=== PATIENT | female | born 1935 | race Caucasian/White ===

== ENCOUNTER 2020-04-13 10:16 | Inpatient (IN) | payer MEDICARE, MEDICAID, SELFPAY ==
[2020-04-13] VITALS (25 sets, daily range): BP systolic 95–148; BP diastolic 31–91; PULSE 52–63; RESP 17–25; TEMP 36.4–36.8; O2SAT 80–100; BMI 23.7
--- NOTE | ~2020-04-13 | CT_ITS ---
EXAMINATION: CT brain wo con DATE: 04/13/2020 19:50 INDICATION: Altered mental status TECHNIQUE: Computed tomography (CT) of the head was performed without intravenous contrast. Sagittal and coronal reconstructions were performed. The mA was adjusted according to patient size. Iterative reconstruction technique was employed. The dose-length product was 1059.33 mGy-cm. COMPARISON: None FINDINGS: Small old infarct at the left lentiform nucleus. No acute intracranial hemorrhage, acute infarction o r abnormal extra axial fluid collection. There is moderate scattered white matter hypoattenuation con sistent with chronic small vessel ischemic disease. Symmetric prominence of the sulci and ventricles consistent with moderate age-appropriate diffuse cerebral volume loss. No mass/mass effect. Intracran ial calcified cerebral atherosclerosis is noted. The orbits, paranasal sinuses and mastoid air cells are normal. IMPRESSION: 1. No acute intracranial process. 2. Small old infarct at the left lentiform nucleus. 3. Age-related changes including moderate diffuse volume loss and moderate scattered white matter hyp oattenuation consistent with chronic small vessel ischemic disease. Reviewed, dictated and finalized at location . DESK REPRESENTATIVE IMPRESSION: 1. No acute intracranial process. 2. Small old infarct at the left lentiform nucleus. 3. Age-related changes including moderate diffuse volume loss and moderate scat tered white matter hypoattenuation consistent with chronic small vessel ischemi c disease.
--- NOTE | 2020-04-13 10:21 | ECG_ITS ---
Measurements Intervals [place] Rate: 62 P: 75 AK: 236 QRS: -34 QRSD: 110 T: 53 QT: 460 QTc: 468 Interpretive Statements SINUS RHYTHM WITH FIRST DEGREE AV BLOCK LEFT AXIS DEVIATION INTRAVENTRICULAR CONDUCTION DELAY DELAYED PRECORDIAL R/S TRANSITION BORDERLINE ST-T WAVE ABNORMALITY- HIGH LATERAL LEADS BASELINE ARTIFACT- I, II, III, AVR, AVL, AVF, V6 ABNORMAL ECG Electronically Signed On 04-13-2020 10:33:17 [employer] MACHINE by Mango Adamson D.O.
--- NOTE | 2020-04-13 10:30 | PC.NURSE ---
Spoke with pt's daughter Aisha Mortensen #[phone] and updated on pt condition.
[2020-04-13 11:12] LABS: Basophils Absolute Auto 0.1 K/mm3 (0.0-0.1); Basophils Percent Auto 0.9 % (0.2-1.2); Eosinophils Absolute Auto 0.3 K/mm3 (0-0.3); Eosinophils Percent Auto 3.5 % (0-4.4); Hemoglobin 13.5 g/dL (12.0-15.0); Immature Granulocyte Absolute 0.03 K/mm3 (0.00-0.031); Immature Granulocyte Percent A 0.4 % (0-0.5); Lymphocytes Absolute Auto 1.72 K/mm3 (0.9-3.2); Mean Corpuscular HGB Conc 31.4 g/dl (32-36); Mean Corpuscular Hemoglobin 29.2 pg (26-34); Mean Corpuscular Volume 92.9 fl (80-100); Mean Platelet Volume 10.4 fl (7.4-10.4); Monocytes Absolute Auto 0.5 K/mm3 (0.1-0.6); Monocytes Percent Auto 6.2 % (2.6-8.5); Neutrophils Absolute Auto 5.6 K/mm3 (1.3-6.7); Platelet Count Result 179 k/mm3 (150-375); Red Blood Count 4.63 M/mm3 (4.2-5.4); Red Cell Distribution Width 14.4 % (11.5-14.5); White Blood Count 8.2 K/mm3 (4.5-10.0)
[2020-04-13 11:23] LABS: Add Urine Microscopic? YES; Appearance Urine Turbid (Clear); Bacteria Urine 2+ /hpf; Bilirubin Urine Negative (Negative); Blood Urine 2+ (Negative); Color Urine Yellow (Yellow); Glucose Urine UA Negative (Negative); Ketones Urine Negative (Negative); Leukocyte Esterase Ur 2+ LEU/UL (Negative); Mucus Urine Heavy /lpf; Nitrate Urine Negative (Negative); Protein Urine 3+ mg/dL (Negative); Specific Grav Ur 1.013 (1.001-1.035); Squamous Epithelial Cell Urine Many /hpf (Few); Urobilinogen Urine Negative mg/dL (<2.0); WBC Clumps Urine Present /HPF; WBC Urine >75 /hpf
[2020-04-13 11:24] LABS: Alanine Aminotransferase 15 U/L (4-35); Albumin Level 3.5 g/dL (3.5-5.1); Alkaline Phosphatase 80 U/L (38-126); Anion Gap 7 mmol/L (8-16); Aspartate Amino Transferase 24 U/L (14-36); Bilirubin,Total 0.6 mg/dL (0.2-1.3); Blood Urea Nitrogen 22 mg/dL (7-17); Calcium 8.8 mg/dL (8.4-10.2); Carbon Dioxide 32 mmol/L (22-30); Chloride 104 mmol/L (98-107); Estimated Glomerular Filt Rate > 60; Glucose 89 mg/dL (65-105); Potassium 4.1 mmol/L (3.4-5.0); Sodium 143 mmol/L (137-145)
--- NOTE | 2020-04-13 11:44 | ED.AMS ---
HPI - Altered Mental Status General Chief Complaint: Altered Mental Status Stated Complaint: AMS Time Seen by Provider: 04/13/20 10:36 History of Present Illness HPI narrative: Patient is an 84-year-old female who presents ER with altered mental status. At baseline patient is oriented x3 and today she is only oriented x1 thus she was sent in for further evaluation. Patient reports she hurts all over. Patient has no additional complaints. She seems somnolent. She has purulent urine. Covid negative 04/07/2020. Related Data Home Medications Medication Instructions Recorded Confirmed Ditropan XL 10 mg PO DAILY 04/13/20 04/13/20 acetaminophen 1,000 mg PO TID PRN 04/13/20 04/13/20 alprazolam 0.25 mg PO HS 04/13/20 04/13/20 atorvastatin 20 mg PO HS 04/13/20 04/13/20 calcium carbonate [Tums] 400 mg PO Q4H PRN 04/13/20 04/13/20 citalopram 10 mg PO DAILY 04/13/20 04/13/20 clopidogrel 75 mg PO DAILY 04/13/20 04/13/20 cyanocobalamin (vitamin B-12) 1,000 mcg MONTHLY 04/13/20 04/13/20 duloxetine 20 mg PO DAILY 04/13/20 04/13/20 famotidine 20 mg PO BID 04/13/20 04/13/20 hydrocodone-acetaminophen 1 tablet PO Q6H PRN 04/13/20 04/13/20 levothyroxine 125 mcg PO DAILY 04/13/20 04/13/20 loratadine [Claritin] 10 mg PO HS 04/13/20 04/13/20 multivitamin with minerals [Daily 1 tablet PO DAILY 04/13/20 04/13/20 Multivitamin-Minerals] nebivolol [Bystolic] 10 mg PO DAILY 04/13/20 04/13/20 pantoprazole 20 mg PO DAILY 04/13/20 04/13/20 polyethylene glycol 3350 [Miralax] 17 g PO HS 04/13/20 04/13/20 potassium chloride 10 meq PO BID 04/13/20 04/13/20 Allergies Allergy/AdvReac Type Severity Reaction Status Date / Time No Known Allergies Allergy Verified 04/13/20 14:05 Review of Systems Review of Systems: ROS unobtainable: Yes unobtainable due to mental status PMFSH Past Medical History Medical History (Updated 04/13/20 @ 16:55 by Sukhdev Zuniga MD) Anxiety CVA (cerebral vascular accident) GERD (gastroesophageal reflux disease) HTN (hypertension), benign Hyperlipidemia Hypothyroidism Major depressive disorder Osteoarthritis Surgical History Surgical History (Updated 04/13/20 @ 14:42 by Bridgette Ling NP) History of bilateral knee replacement Surgical history unknown Family History Family History (Updated 04/13/20 @ 14:44 by Bridgette Ling NP) Unknown Unknown family medical history Social History Social History (Updated 04/13/20 @ 14:46 by Bridgette Ling NP) Social History: the patient comes from [place] is a [facility]. The patient is . She is retired she is a DNR. Her daughter Aisha is listed as a durable power employment law attorney for healthcare. Patient tells me she has 2 children. Patient told me that she never smokes or uses alcohol or any illicit drugs. Smoking status: Never smoker Alcohol intake: never Substance use: never Living arrangements: detention Additional living arrangements comments: Lives at [facility] Occupation/Education: retired Gender identity (if verbalized by the patient): Female Sexual Orientation (if Verbalized by the Patient): Straight or Heterosexual Spiritual care concerns: No Exam Narrative: Exam Narrative: GENERAL: Chronically ill-appearing, well-nourished, and in no acute distress. HEAD: Normocephalic, atraumatic. EYES: PERRL and EOMI. ENT: Mucous membranes moist. CHEST: Clear to auscultation. No respiratory distress. HEART: Bradycardic and regular. Normal peripheral pulses. ABDOMEN: Soft, nontender, nondistended. EXTREMITIES: Normal range of motion. No edema. SKIN: Warm, dry, no rash. NEURO: Alert and oriented x1. Course Course Emergency Course: Admit to hospitalist service for UTI. Vital Signs Vital signs: Vital Signs Temperature 98 F 04/13/20 10:16 Pulse Rate 54 L 04/13/20 10:16 Respiratory Rate 23 H 04/13/20 10:16 Blood Pressure 140/91 H 04/13/20 10:16 Pulse Oximetry 90 04/13/20 10:16 Temperature 97.6 F
--- NOTE | 2020-04-13 12:20 | PC.NURSE ---
received report from Rd. patient sent here from [place] with lethargy. see notes. no change in overall condition. waiting for further orders from .
--- NOTE | 2020-04-13 12:20 | PC.NURSE ---
unable to get lactic drawn yet. difficult stick. oil burner technician will try again. IV antibiotic started. patient on environmental monitoring technician.
--- NOTE | 2020-04-13 12:26 | PC.NURSE ---
patient is difficult IV stick. morgue technician at bedside now.
[2020-04-13 13:10] LABS: Lactic Acid Reflex 2.5 mmol/L (0.7-2.1)
--- NOTE | 2020-04-13 13:15 | PC.NURSE ---
no change. continue to monitor. SBAR completed and faxed but RN unavailable for report.
--- NOTE | 2020-04-13 13:30 | PC.NURSE ---
report given to Roxanne BEAR. patient will transfer via technical services manager and stretcher.
--- NOTE | 2020-04-13 13:40 | ADMGEN ---
This patient, Angela Tan, was admitted to Medical Room 258-01. Patient/family oriented to hospital policies and general routines including ID bracelet, bed and alarms, visiting hours, pain management, procedures, bathroom and other care routines, personal items, smoking policy, room service/diet, and visiting hours. Information on how to activate the Rapid Response Team has been discussed. Patient/Family are encouraged to report perceived risks to care and to ask questions if they do not understand what they are told or what they should do.
--- NOTE | 2020-04-13 14:30 | PM.IMHP ---
H&P: HPI History of Present Illness Date/Time: 04/13/20 14:30 Chief complaint: uti,metabolic encephalopathy Narrative: Angela Tan is a 84 year old female Who is from [facility]. the patient came in with altered mental status. She is typically alert orientated x3. She was only orientated x1 and was sent to the emergency room for further evaluation. The patient was telling the ER physician that she was hurting all over. The patient initially was not talking to me and then I came back to re-evaluate her she was answering more questions. The patient had a COVID negative test on 04/07/2020. the patient is afebrile. She had purulence cloudy urine noted in the emergency room. She is positive for urinary tract infection. Patient has no records of having any resistant bacteria. She was started on ceftriaxone. urine cultures are pending. Blood cultures are pending. The patient became more talkative towards the end of the interview. The patient is being admitted into observation status on the date of service 04/13/2020. Review of Systems Review of Systems: All systems reviewed & are unremarkable except as noted in HPI and below Constitutional: Constitutional: Reports as per HPI and Reports no additional constitutional complaints Eyes: Eyes: Reports as per HPI and Reports no additional eye complaints ENT: Reports system reviewed and no additional complaints, except as documented and Reports Normal hearing present Cardiovascular: Cardiovascular: Reports no additional cardiovascular complaints Respiratory: Respiratory: Reports no additional respiratory complaints and Reports no additional respiratory complaints Gastrointestinal: Gastrointestinal: Reports as per HPI and Reports no additional gastrointestinal complaints Musculoskeletal: Musculoskeletal: Reports no additional musculoskeletal complaints Integumentary/Breasts: Skin/Breast: Reports system reviewed and no additional complaints, except as docu and Reports as per HPI Neurologic: Reports system reviewed and no additional complaints, except as documented, Reports as per HPI and Reports Normal hearing present Psychiatric: Psychiatric: Reports no additional psychiatric complaints and Reports as per HPI Endocrine: Endocrine: Reports no additional endocrine complaints Hematologic/Lymphatic: Hematologic/Lymphatic: Reports no additional hematologic/lymphatic complaints Allergic/Immunologic: Allergic/Immunologic: Reports no additional allergic/immunologic complaints [facility] Past Medical History Medical History (Updated 04/13/20 @ 14:42 by Bridgette Ling NP) Anxiety CVA (cerebral vascular accident) GERD (gastroesophageal reflux disease) HTN (hypertension), benign Hyperlipidemia Hypothyroidism Major depressive disorder Osteoarthritis Surgical History Surgical History (Updated 04/13/20 @ 14:42 by Bridgette Ling NP) History of bilateral knee replacement Surgical history unknown Family History Family History (Updated 04/13/20 @ 14:44 by Bridgette Ling NP) Unknown Unknown family medical history Social History Social History (Updated 04/13/20 @ 14:46 by Bridgette Ling NP) Social History: the patient comes from [place] [facility]. The patient is . She is retired she is a DNR. Her daughter Aisha is listed as a durable power attorney at law for healthcare. Patient tells me she has 2 children. Patient told me that she never smokes or uses alcohol or any illicit drugs. Smoking status: Never smoker Alcohol intake: never Substance use: never Living arrangements: [facility] Additional living arrangements comments: Lives at [facility] Occupation/Education: retired Gender identity (if verbalized by the patient): Female Sexual Orientation (if Verbalized by the Patient): Straight or Heterosexual Spiritual care concerns: No Meds Home Medications and Allergies Home Medications Medication Instructions Recor
[2020-04-13 15:52] LABS: Reflex Lactic Acid Yes or No Add Lactic
[2020-04-13 16:40] LABS: Lactic Acid 2.4 mmol/L (0.7-2.1)
[2020-04-13] MEDS: POTASSIUM CHLORIDE 10 MEQ TABLET.ER PO (17:30)
[2020-04-13] MEDS: FAMOTIDINE 20 MG TABLET PO (17:30)
[2020-04-13] MEDS: polyethylene glycoL 3350 17 GM POWD.PACK PO (20:11)
[2020-04-13] MEDS: LORATADINE 10 MG TABLET PO (20:11)
[2020-04-14 04:00] VITALS: BP 152/68; PULSE 97; RESP 22; TEMP 37.3; O2SAT 99
[2020-04-14 05:59] LABS: Basophils Absolute Auto 0.1 K/mm3 (0.0-0.1); Basophils Percent Auto 0.6 % (0.2-1.2); Eosinophils Absolute Auto 0.1 K/mm3 (0-0.3); Eosinophils Percent Auto 1.1 % (0-4.4); Hematocrit 43.2 % (37.0-47.0); Hemoglobin 13.6 g/dL (12.0-15.0); Immature Granulocyte Absolute 0.03 K/mm3 (0.00-0.031); Immature Granulocyte Percent A 0.4 % (0-0.5); Lymphocytes Percent Auto 13.2 % (18.3-44.2); Mean Corpuscular HGB Conc 31.5 g/dl (32-36); Mean Corpuscular Hemoglobin 28.5 pg (26-34); Mean Corpuscular Volume 90.6 fl (80-100); Mean Platelet Volume 10.7 fl (7.4-10.4); Monocytes Absolute Auto 0.5 K/mm3 (0.1-0.6); Monocytes Percent Auto 5.6 % (2.6-8.5); Neutrophils Absolute Auto 6.6 K/mm3 (1.3-6.7); Neutrophils Percent Auto 79.1 % (45.5-73.1); Platelet Count Result 208 k/mm3 (150-375); Red Blood Count 4.77 M/mm3 (4.2-5.4); White Blood Count 8.4 K/mm3 (4.5-10.0)
[2020-04-14] MEDS: LEVOTHYROXINE SODIUM 125 MCG TABLET PO (06:06)
[2020-04-14 06:23] LABS: Alanine Aminotransferase 17 U/L (4-35); Albumin Level 3.6 g/dL (3.5-5.1); Alkaline Phosphatase 93 U/L (38-126); Anion Gap 7 mmol/L (8-16); Aspartate Amino Transferase 28 U/L (14-36); Bilirubin,Total 0.6 mg/dL (0.2-1.3); Blood Urea Nitrogen 21 mg/dL (7-17); Carbon Dioxide 31 mmol/L (22-30); Chloride 105 mmol/L (98-107); Estimated CRCL calculation 63 ml/min; Estimated Glomerular Filt Rate > 60; Glucose 110 mg/dL (65-105); Magnesium 2.2 mg/dL (1.6-2.3); Potassium 3.9 mmol/L (3.4-5.0); Sodium 143 mmol/L (137-145)
[2020-04-14 08:20] VITALS: PULSE 92; PULSE 96; RESP 16; O2SAT 99
[2020-04-14] MEDS: CITALOPRAM HYDROBROMIDE 10 MG TABLET PO (08:20)
[2020-04-14] MEDS: POTASSIUM CHLORIDE 10 MEQ TABLET.ER PO ×2 (08:20→17:45)
[2020-04-14] MEDS: CLOPIDOGREL BISULFATE 75 MG TABLET PO (08:20)
[2020-04-14] MEDS: NEBIVOLOL HCL 5 MG TABLET 10 MG PO (08:20)
[2020-04-14] MEDS: DULoxetine HCL 20 MG CAPSULE.DR PO (08:20)
[2020-04-14] MEDS: THERAPEUTIC MULTIVITAMINS/MINERALS TAB (*BKC) 1 TABLET PO (08:20)
[2020-04-14] MEDS: FAMOTIDINE 20 MG TABLET PO ×2 (08:20→17:46)
[2020-04-14] MEDS: PANTOPRAZOLE SOD SESQUIHYDRATE 20 MG TAB PO (08:22)
--- NOTE | 2020-04-14 12:36 | PCOTNOTE ---
Attempted OT evaluation. Patient eating lunch. Will continue to attempt.
[2020-04-14 14:00] VITALS: BP 115/46; PULSE 75; RESP 18; TEMP 36.9; O2SAT 95
--- NOTE | 2020-04-14 14:12 | PM.IMPN ---
Progress Note: A&P Assessment and Plan (1) UTI (urinary tract infection): Code(s): N39.0 - Urinary tract infection, site not specified Status: Acute Assessment and Plan: The patient was started on ceftriaxone. Urine cultures are pending and blood cultures are pending. Patient initially was confused. However after her 1st dose of antibiotic she became alert And talkative. 04/14/20 14:12 Patient 84-year-old female a resident of care home patient was sent to emergency department for further evaluation as patient was more confused and not to her baseline, emergency department patient is found to have UTI was started on Rocephin this morning patient is quite reluctant to talk to me and to provide any review of symptoms, most likely her symptoms may be caused by irritation of her UTI, will continue to treat the patient will follow-up on urine culture and sensitivity, PT OT evaluate the patient and monitor further recommendation to follow (2) HTN (hypertension), benign: Code(s): I10 - Essential (primary) hypertension Status: Chronic Assessment and Plan: continue with Bystolic. (3) Anxiety: Code(s): F41.9 - Anxiety disorder, unspecified Status: Chronic Assessment and Plan: Were going to hold her alprazolam at this time because she has been so lethargic. (4) Major depressive disorder: Code(s): F32.9 - Major depressive disorder, single episode, unspecified Status: Chronic Assessment and Plan: Continue with duloxetine. Continue with Celexa. Home medications have not been verified but this is what is showing up on her prescription monitoring program. (5) Hyperlipidemia: Code(s): E78.5 - Hyperlipidemia, unspecified Status: Chronic Assessment and Plan: Hold her statin for now. (6) Hypothyroidism: Code(s): E03.9 - Hypothyroidism, unspecified Status: Chronic Assessment and Plan: Check thyroid level and continue levothyroxine. Subjective Date/time seen: 04/14/20 14:12 Patient 84-year-old female a resident of care home patient was sent to emergency department for further evaluation as patient was more confused and not to her baseline, emergency department patient is found to have UTI was started on Rocephin this morning patient is quite reluctant to talk to me and to provide any review of symptoms, most likely her symptoms may be caused by irritation of her UTI, will continue to treat the patient will follow-up on urine culture and sensitivity, PT OT evaluate the patient and monitor further recommendation to follow Review of Systems Review of Systems: All systems reviewed & are unremarkable except as noted in HPI and below Constitutional: Constitutional: Reports as per HPI and Reports no additional constitutional complaints Exam Narrative: Exam Narrative: Elderly frail Patient is comfortable, NAD HEENT: eyes are clear and none icteric LUNGS:CTA HEART: RR S1S2 ABD: BS+, Soft and nontender Lower extremities: no edema SKIN: nonjaundiced Neuro: grossly intact. Objective Data Vital Signs Vital Signs: Vital Signs - 24 hr 04/13/20 14:30 04/13/20 20:00 04/14/20 04:00 Temperature 97.6 F 98.2 F 99.1 F Pulse Rate 60 52 L 97 Respiratory Rate 18 22 H 22 H Blood Pressure 148/56 H 115/42 L 152/68 H Pulse Oximetry 100 95 99 04/14/20 08:20 Temperature Pulse Rate 96 Respiratory Rate 16 Blood Pressure Pulse Oximetry 99 Intake/Output Intake/Output: Intake & Output 04/11/20 04/12/20 04/13/20 04/14/20 23:59 23:59 23:59 23:59 Intake Total 125 50 Output Total 100 Balance 25 50 Meds/Results Medications: Active Medications Generic Name Dose Route Start Last Admin Trade Name Freq PRN Reason Stop Dose Admin Acetaminophen 650 mg 04/13/20 12:10 Acetaminophen 325 Mg Tablet PO Q4H PRN Mild Pain (1-3) or Fever Hydrocodone Bitart/Acetaminophen 1 tab 04/13/20 12:10
[2020-04-14 20:00] VITALS: O2SAT 94
[2020-04-14] MEDS: polyethylene glycoL 3350 17 GM POWD.PACK PO (20:15)
[2020-04-14] MEDS: LORATADINE 10 MG TABLET PO (20:15)
[2020-04-14 22:00] VITALS: BP 125/54; PULSE 68; RESP 20; TEMP 36.3; O2SAT 94
[2020-04-15] MEDS: LEVOTHYROXINE SODIUM 125 MCG TABLET PO (05:45)
[2020-04-15 05:58] LABS: Hematocrit 40.3 % (37.0-47.0); Hemoglobin 12.9 g/dL (12.0-15.0); Mean Corpuscular Hemoglobin 28.6 pg (26-34); Mean Corpuscular Volume 89.4 fl (80-100); Mean Platelet Volume 10.4 fl (7.4-10.4); Platelet Count Result 193 k/mm3 (150-375); Red Blood Count 4.51 M/mm3 (4.2-5.4); Red Cell Distribution Width 14.2 % (11.5-14.5); White Blood Count 7.9 K/mm3 (4.5-10.0)
[2020-04-15 06:00] VITALS: BP 153/65; PULSE 67; RESP 20; TEMP 36.4; O2SAT 93
[2020-04-15 06:14] LABS: Anion Gap 3 mmol/L (8-16); Blood Urea Nitrogen 19 mg/dL (7-17); Calcium 8.8 mg/dL (8.4-10.2); Carbon Dioxide 33 mmol/L (22-30); Chloride 103 mmol/L (98-107); Estimated CRCL calculation 63 ml/min; Estimated Glomerular Filt Rate > 60; Glucose 95 mg/dL (65-105); Potassium 4.2 mmol/L (3.4-5.0); Sodium 139 mmol/L (137-145)
[2020-04-15] MEDS: DULoxetine HCL 20 MG CAPSULE.DR PO (09:16)
[2020-04-15] MEDS: EUCERIN CREAM 120 GM JAR 1 APPLIC TOPICAL (09:16)
[2020-04-15 09:17] VITALS: PULSE 68
[2020-04-15] MEDS: PANTOPRAZOLE SOD SESQUIHYDRATE 20 MG TAB PO (09:17)
[2020-04-15] MEDS: CITALOPRAM HYDROBROMIDE 10 MG TABLET PO (09:17)
[2020-04-15] MEDS: POTASSIUM CHLORIDE 10 MEQ TABLET.ER PO ×2 (09:17→16:48)
[2020-04-15] MEDS: NEBIVOLOL HCL 5 MG TABLET 10 MG PO (09:17)
[2020-04-15 09:18] VITALS: RESP 20; O2SAT 94
[2020-04-15] MEDS: THERAPEUTIC MULTIVITAMINS/MINERALS TAB (*BKC) 1 TABLET PO (09:18)
[2020-04-15] MEDS: FAMOTIDINE 20 MG TABLET PO ×2 (09:18→16:48)
[2020-04-15] MEDS: CLOPIDOGREL BISULFATE 75 MG TABLET PO (09:18)
[2020-04-15] MEDS: CYANOCOBALAMIN INJ 1,000 MCG/ML VIAL 1000 MCG IM (09:18)
--- NOTE | 2020-04-15 10:20 | PM.IMPN ---
Progress Note: A&P Assessment and Plan (1) UTI (urinary tract infection): Code(s): N39.0 - Urinary tract infection, site not specified Status: Acute Assessment and Plan: The patient was started on ceftriaxone. Urine cultures are pending and blood cultures are pending. Patient initially was confused. However after her 1st dose of antibiotic she became alert And talkative. 04/15/20 10:20 Patient 84-year-old female a [facility] patient was sent to emergency department for further evaluation as patient was more confused and not to her baseline, emergency department patient is found to have UTI was started on Rocephin on 04/14 patient was quite reluctant to talk to me and to provide any review of symptoms, suspected her symptoms may be caused by irritation of her UTI, today patient is much more pleasant and cooperative is feeling much better, denies any abdominal pain nausea or vomiting fever or chill, patient also work with occupational therapy and patient is on her baseline, will wait for physical therapist to evaluate the patient, will wait to follow-up on urine culture and sensitivity and further recommendation, if remains clinically stable may discharge the patient home tomorrow (2) HTN (hypertension), benign: Code(s): I10 - Essential (primary) hypertension Status: Chronic Assessment and Plan: continue with Bystolic. (3) Anxiety: Code(s): F41.9 - Anxiety disorder, unspecified Status: Chronic Assessment and Plan: Were going to hold her alprazolam at this time because she has been so lethargic. (4) Major depressive disorder: Code(s): F32.9 - Major depressive disorder, single episode, unspecified Status: Chronic Assessment and Plan: Continue with duloxetine. Continue with Celexa. Home medications have not been verified but this is what is showing up on her prescription monitoring program. (5) Hyperlipidemia: Code(s): E78.5 - Hyperlipidemia, unspecified Status: Chronic Assessment and Plan: Hold her statin for now. (6) Hypothyroidism: Code(s): E03.9 - Hypothyroidism, unspecified Status: Chronic Assessment and Plan: Check thyroid level and continue levothyroxine. Subjective Date/time seen: 04/15/20 10:20 Patient 84-year-old female a resident [facility] patient was sent to emergency department for further evaluation as patient was more confused and not to her baseline, emergency department patient is found to have UTI was started on Rocephin on 04/14 patient was quite reluctant to talk to me and to provide any review of symptoms, suspected her symptoms may be caused by irritation of her UTI, today patient is much more pleasant and cooperative is feeling much better, denies any abdominal pain nausea or vomiting fever or chill, patient also work with occupational therapy and patient is on her baseline, will wait for physical therapist to evaluate the patient, will wait to follow-up on urine culture and sensitivity and further recommendation, if remains clinically stable may discharge the patient home tomorrow Review of Systems Review of Systems: All systems reviewed & are unremarkable except as noted in HPI and below Exam Narrative: Exam Narrative: Elderly frail Patient is comfortable, NAD HEENT: eyes are clear and none icteric LUNGS:CTA HEART: RR S1S2 ABD: BS+, Soft and nontender Lower extremities: no edema SKIN: nonjaundiced Neuro: grossly intact. Objective Data Vital Signs Vital Signs: Vital Signs - 24 hr 04/14/20 14:00 04/14/20 20:00 04/14/20 22:00 Temperature 98.5 F 97.3 F L Pulse Rate 75 68 Respiratory Rate 18 20 Blood Pressure 115/46 L 125/54 L Pulse Oximetry 95 94 94 04/15/20 06:00 04/15/20 09:17 04/15/20 09:18 Temperature 97.6 F Pulse Rate 67 68 Respiratory Rate 20 20 Blood Pressure 153/65 H Pulse Oximetry 93 94 Intake/Output Intake/Output: In
[2020-04-15 14:00] VITALS: BP 136/57; PULSE 68; RESP 16; TEMP 37; O2SAT 95
[2020-04-15 17:04] LABS: SARS-CoV-2 RNA PCR Negative
[2020-04-15] MEDS: polyethylene glycoL 3350 17 GM POWD.PACK PO (21:00)
[2020-04-15] MEDS: LORATADINE 10 MG TABLET PO (21:00)
[2020-04-15 22:00] VITALS: BP 154/64; PULSE 68; RESP 18; TEMP 36.4; O2SAT 94
[2020-04-16 05:25] LABS: Hematocrit 39.9 % (37.0-47.0); Mean Corpuscular HGB Conc 32.6 g/dl (32-36); Mean Corpuscular Hemoglobin 29.6 pg (26-34); Mean Corpuscular Volume 90.9 fl (80-100); Mean Platelet Volume 10.6 fl (7.4-10.4); Platelet Count Result 194 k/mm3 (150-375); Red Blood Count 4.39 M/mm3 (4.2-5.4); Red Cell Distribution Width 14.1 % (11.5-14.5); White Blood Count 7.4 K/mm3 (4.5-10.0)
[2020-04-16 05:40] LABS: Anion Gap 5 mmol/L (8-16); Blood Urea Nitrogen 19 mg/dL (7-17); Calcium 8.7 mg/dL (8.4-10.2); Carbon Dioxide 30 mmol/L (22-30); Chloride 107 mmol/L (98-107); Estimated CRCL calculation 74 ml/min; Estimated Glomerular Filt Rate > 60; Glucose 93 mg/dL (65-105); Potassium 4.1 mmol/L (3.4-5.0); Sodium 142 mmol/L (137-145)
[2020-04-16 05:59] VITALS: BP 156/61; PULSE 71; RESP 16; TEMP 36.3; O2SAT 92
[2020-04-16] MEDS: LEVOTHYROXINE SODIUM 125 MCG TABLET PO (06:09)
[2020-04-16 08:00] VITALS: BP 109/81; PULSE 67
[2020-04-16 08:45] VITALS: PULSE 67
[2020-04-16] MEDS: POTASSIUM CHLORIDE 10 MEQ TABLET.ER PO (08:45)
[2020-04-16] MEDS: CITALOPRAM HYDROBROMIDE 10 MG TABLET PO (08:45)
[2020-04-16] MEDS: NEBIVOLOL HCL 5 MG TABLET 10 MG PO (08:45)
[2020-04-16] MEDS: PANTOPRAZOLE SOD SESQUIHYDRATE 20 MG TAB PO (08:45)
[2020-04-16] MEDS: THERAPEUTIC MULTIVITAMINS/MINERALS TAB (*BKC) 1 TABLET PO (08:45)
[2020-04-16] MEDS: CLOPIDOGREL BISULFATE 75 MG TABLET PO (08:45)
[2020-04-16] MEDS: EUCERIN CREAM 120 GM JAR 1 APPLIC TOPICAL (08:46)
[2020-04-16] MEDS: DULoxetine HCL 20 MG CAPSULE.DR PO (08:46)
[2020-04-16] MEDS: FAMOTIDINE 20 MG TABLET PO (08:46)
[2020-04-16] MEDS: ACETAMINOPHEN 325 MG TABLET 650 MG PO (11:40)
--- NOTE | 2020-04-16 13:32 | PM.IMPN ---
Progress Note: A&P Assessment and Plan (1) UTI (urinary tract infection): Code(s): N39.0 - Urinary tract infection, site not specified Status: Acute Assessment and Plan: The patient was started on ceftriaxone. Urine cultures are pending and blood cultures are pending. Patient initially was confused. However after her 1st dose of antibiotic she became alert And talkative. 04/16/20 13:32 Patient 84-year-old female [facility] patient was sent to emergency department for further evaluation as patient was more confused and not to her baseline, emergency department patient is found to have UTI was started on Rocephin on 04/14 patient was quite reluctant to talk to me and to provide any review of symptoms, suspected her symptoms may be caused by irritation of her UTI, today 04/16 patient is much more pleasant and cooperative is feeling much better, denies any abdominal pain nausea or vomiting fever or chill, patient also worked with occupational therapy, patient is full assist at [place] and patient is on her baseline, her urine culture is growing E. coli, and providencia stuartii sensitive to Rocephin, patient is clinically stable, will discharge back to [place] on oral cefdenir, will follow up with her primary care provider. (2) HTN (hypertension), benign: Code(s): I10 - Essential (primary) hypertension Status: Chronic Assessment and Plan: continue with Bystolic. (3) Anxiety: Code(s): F41.9 - Anxiety disorder, unspecified Status: Chronic Assessment and Plan: Were going to hold her alprazolam at this time because she has been so lethargic. (4) Major depressive disorder: Code(s): F32.9 - Major depressive disorder, single episode, unspecified Status: Chronic Assessment and Plan: Continue with duloxetine. Continue with Celexa. Home medications have not been verified but this is what is showing up on her prescription monitoring program. (5) Hyperlipidemia: Code(s): E78.5 - Hyperlipidemia, unspecified Status: Chronic Assessment and Plan: Hold her statin for now. (6) Hypothyroidism: Code(s): E03.9 - Hypothyroidism, unspecified Status: Chronic Assessment and Plan: Check thyroid level and continue levothyroxine. Subjective Date/time seen: 04/16/20 13:32 Patient 84-year-old female a resident of [facility] patient was sent to emergency department for further evaluation as patient was more confused and not to her baseline, emergency department patient is found to have UTI was started on Rocephin on 04/14 patient was quite reluctant to talk to me and to provide any review of symptoms, suspected her symptoms may be caused by irritation of her UTI, today 04/16 patient is much more pleasant and cooperative is feeling much better, denies any abdominal pain nausea or vomiting fever or chill, patient also worked with occupational therapy, patient is full assist at [place] and patient is on her baseline, her urine culture is growing E. coli, and providencia stuartii sensitive to Rocephin, patient is clinically stable, will discharge back to [place] on oral cefdenir, will follow up with her primary care provider. Review of Systems Review of Systems: All systems reviewed & are unremarkable except as noted in HPI and below Exam Narrative: Exam Narrative: Elderly frail Patient is comfortable, NAD HEENT: eyes are clear and none icteric LUNGS:CTA HEART: RR S1S2 ABD: BS+, Soft and nontender Lower extremities: no edema SKIN: nonjaundiced Neuro: grossly intact. Objective Data Vital Signs Vital Signs: Vital Signs - 24 hr 04/15/20 14:00 04/15/20 22:00 04/16/20 05:59 Temperature 98.6 F 97.5 F L 97.3 F L Pulse Rate 68 68 71 Respiratory Rate 16 18 16 Blood Pressure 136/57 L 154/64 H 156/61 H Pulse Oximetry 95 94 92 04/16/20 08:45 Temperature Pulse Rate 67 Respiratory Rate Blood Pressure Pulse Oximetry Intake/Ou
--- NOTE | 2020-04-16 13:47 | PM.DS ---
DS: Admitting Diagnosis Admitting Diagnosis Admitting Diagnosis: uti,metabolic encephalopathy DS: Discharge Diagnosis Discharge Diagnosis (1) UTI (urinary tract infection): Code(s): N39.0 - Urinary tract infection, site not specified Status: Acute Assessment and Plan: The patient was started on ceftriaxone. Urine cultures are pending and blood cultures are pending. Patient initially was confused. However after her 1st dose of antibiotic she became alert And talkative. 04/16/20 13:32 Patient 84-year-old female a resident of [facility] patient was sent to emergency department for further evaluation as patient was more confused and not to her baseline, emergency department patient is found to have UTI was started on Rocephin on 04/14 patient was quite reluctant to talk to me and to provide any review of symptoms, suspected her symptoms may be caused by irritation of her UTI, today 04/16 patient is much more pleasant and cooperative is feeling much better, denies any abdominal pain nausea or vomiting fever or chill, patient also worked with occupational therapy, patient is full assist at [facility] and patient is on her baseline, her urine culture is growing E. coli, and providencia stuartii sensitive to Rocephin, patient is clinically stable, will discharge back to [facility] on oral cefdenir, will follow up with her primary care provider. (2) HTN (hypertension), benign: Code(s): I10 - Essential (primary) hypertension Status: Chronic Assessment and Plan: continue with Bystolic. (3) Anxiety: Code(s): F41.9 - Anxiety disorder, unspecified Status: Chronic Assessment and Plan: Were going to hold her alprazolam at this time because she has been so lethargic. (4) Major depressive disorder: Code(s): F32.9 - Major depressive disorder, single episode, unspecified Status: Chronic Assessment and Plan: Continue with duloxetine. Continue with Celexa. Home medications have not been verified but this is what is showing up on her prescription monitoring program. (5) Hyperlipidemia: Code(s): E78.5 - Hyperlipidemia, unspecified Status: Chronic Assessment and Plan: Hold her statin for now. (6) Hypothyroidism: Code(s): E03.9 - Hypothyroidism, unspecified Status: Chronic Assessment and Plan: Check thyroid level and continue levothyroxine. DS: Summary Hospital Course Reason for hospitalization: Chief complaint: uti,metabolic encephalopathy Narrative: Angela Tan is a 84 year old female Who is from [facility]. the patient came in with altered mental status. She is typically alert orientated x3. She was only orientated x1 and was sent to the emergency room for further evaluation. The patient was telling the ER physician that she was hurting all over. The patient initially was not talking to me and then I came back to re-evaluate her she was answering more questions. The patient had a COVID negative test on 04/07/2020. the patient is afebrile. She had purulence cloudy urine noted in the emergency room. She is positive for urinary tract infection. Patient has no records of having any resistant bacteria. She was started on ceftriaxone. urine cultures are pending. Blood cultures are pending. The patient became more talkative towards the end of the interview. The patient is being admitted into observation status on the date of service 04/13/2020. Hospital Course: 04/16/20 13:32 Patient 84-year-old female a resident of [facility] patient was sent to emergency department for further evaluation as patient was more confused and not to her baseline, emergency department patient is found to have UTI was started on Rocephin on 04/14 patient was quite reluctant to talk to me and to provide any review of symptoms, suspected her symptoms may be caused by irritation of her UTI, today 04/16 patient is much more pleasant and cooperative is feeli
[2020-04-16 14:00] VITALS: BP 148/50; PULSE 61; RESP 18; TEMP 36.2; O2SAT 94
== END 2020-04-16 15:40 | DRG 689 ==
LOC: ANHED 10:52 → ANH2MED 12:59
PROVIDERS: Family Medicine; Nurse Practitioner; Admitting Provider Family Medicine; Emergency Provider Emergency Medicine; PCP General Practice; Visit Provider Family Medicine
DX: N39.0 Urinary tract infection, site not specified (principal); G93.41 Metabolic encephalopathy; F41.8 Other specified anxiety disorders; E78.5 Hyperlipidemia, unspecified; E03.9 Hypothyroidism, unspecified; I10 Essential (primary) hypertension; B96.20 Unspecified Escherichia coli [E. coli] as the cause of diseases classified elsewhere; Z20.828 Contact with and (suspected) exposure to other viral communicable diseases
CPT/HCPCS: 36415; 51701; 70450; 80048; 80053; 81001; 82728; 83605; 83735; 84443; 85025; 85027; 87040; 87077; 87086; 87088; 87186; 87635; 93005; 96365; 96366; 97110; 97161; 99285; A9270; C9803; G0378; J0696; J3420; U0003